=== PATIENT | male | born 1955 | race African-American/Black ===

== ENCOUNTER 2017-07-19 19:31 | Emergency (ER) | payer MEDICARE, MEDICAID ==
[~2017-07-19] VITALS: Ht 172.7 cm; Wt 77.0 kg
[~2017-07-19 19:31] MED LIST: ATENOLOL; CIPR500S3 PO; LEVO500T2 PO; LIPITOR; LISINOPRIL; NORVASC; PROCARDIA; THALITONE
[2017-07-19 20:38] VITALS: BP 156/87
[2017-07-19] MEDS ORDERED: TRANEXAMIC ACID 1,000 MG/10 ML IV ONE (21:00)
== END 2017-07-19 22:10 | disposition home or self-care (01) ==
LOC: ER 21:48
DX: K91.841 Postprocedural hemorrhage of a digestive system organ or structure following other procedure (principal); I10 Essential (primary) hypertension; Z86.73 Personal history of transient ischemic attack (TIA), and cerebral infarction without residual deficits; Z79.82 Long term (current) use of aspirin; Z87.442 Personal history of urinary calculi
CPT/HCPCS: 96374; 99284

== ENCOUNTER 2018-01-24 19:03 | Emergency (ER) | payer MEDICARE, MEDICAID ==
[~2018-01-24] VITALS: Ht 172.7 cm; Wt 75.0 kg
[2018-01-24 19:08] VITALS: BP 152/90
[2018-01-24] MEDS ORDERED: TRANEXAMIC ACID 1,000 MG/10 ML IV ONE (20:30)
== END 2018-01-24 21:47 | disposition home or self-care (01) ==
LOC: ER 19:03
DX: K13.79 Other lesions of oral mucosa (principal); K91.840 Postprocedural hemorrhage of a digestive system organ or structure following a digestive system procedure; I10 Essential (primary) hypertension; Z79.899 Other long term (current) drug therapy; Z87.442 Personal history of urinary calculi; Z86.73 Personal history of transient ischemic attack (TIA), and cerebral infarction without residual deficits
CPT/HCPCS: 96374; 99284

== ENCOUNTER 2021-01-05 10:52 | Emergency (ER) | payer MEDICARE, MEDICAID ==
[~2021-01-05] VITALS: Ht 172.7 cm; Wt 79.0 kg
[2021-01-05] MEDS ORDERED: IBUP-2029 MT (12:04)
[2021-01-05] MEDS ORDERED: LIDO700A15 TP (12:04)
[2021-01-05] MEDS ORDERED: BACL-141 MT (12:04)
[2021-01-05] MEDS ORDERED: T3 PO (12:04)
[2021-01-05] MEDS ORDERED: DEXAMETHASONE 10 MG/ML VIAL IV ONE (12:15)
[2021-01-05] MEDS ORDERED: LIDOCAINE 5% PATCH TOP SCH (12:15)
[2021-01-05] MEDS ORDERED: ACETAMINOPHEN 325MG TABLET PO ONE (12:15)
[2021-01-05] MEDS ORDERED: ACETAMINOPHEN 325MG TABLET PO NR (13:45)
[2021-01-05 14:54] VITALS: BP 158/91
== END 2021-01-05 14:56 | disposition home or self-care (01) ==
LOC: ER 10:52
DX: G57.02 Lesion of sciatic nerve, left lower limb (principal); I10 Essential (primary) hypertension; I69.351 Hemiplegia and hemiparesis following cerebral infarction affecting right dominant side
CPT/HCPCS: 73630; 96374; 99283; J1100